=== PATIENT | male | born 1975 | race Caucasian/White ===

== ENCOUNTER 2021-01-15 19:58 | Emergency (ER) | payer OTHER ==
[~2021-01-15] VITALS: Ht 170.2 cm; Wt 86.2 kg
[2021-01-15 20:23] LABS: URINE BILIRUBIN NEGATIVE (Negative); URINE BLOOD 3+ (Negative); URINE CLARITY CLEAR; URINE COLOR YELLOW; URINE GLUCOSE-RANDOM NEGATIVE (Negative); URINE KETONES 2+ (Negative); URINE LEUKOCYTES-REFLEX NEGATIVE (Negative); URINE NITRITE-REFLEX NEGATIVE (Negative); URINE PROTEIN NEGATIVE (Negative); URINE SPECIFIC GRAVITY >= 1.030 (1.005-1.030); URINE UROBILINOGEN 0.2 E.U./dl (0.2-1.0)
[2021-01-15 20:40] LABS: MUCUS 4-6 Moderate strn/LPF (None Seen); URINE RBC >20 Many /HPF (0-2); URINE WBC-REFLEX 0-5 Rare /HPF (0-5)
[2021-01-15 20:41] LABS: CASTS None Seen /LPF (None Seen); CRYSTALS None Seen /LPF (None Seen); SQUAMOUS NONE SEEN /LPF (0-3)
[2021-01-15 20:42] LABS: BACTERIA-REFLEX 1-9 Few /HPF (None Seen)
[2021-01-15 20:51] LABS: ABSOLUTE EOSINOPHILS 0.2 thou/uL (0.0-0.7); ABSOLUTE LYMPHOCYTES 1.3 thou/uL (0.8-5.3); ABSOLUTE MONOCYTES 0.3 thou/uL (0.0-1.2); ABSOLUTE NEUTROPHILS 10.1 thou/uL (1.6-8.1); BASOPHILS 0.4 %; EOSINOPHILS 1.4 %; HEMATOCRIT 45.4 % (42.0-52.0); HEMOGLOBIN 16.1 gm/dL (14.0-18.0); LYMPHOCYTES 10.6 %; MCH 32.8 pg (26.0-34.0); MCHC 35.4 g/dL (28.0-37.0); MCV 92.6 fL (80.0-100.0); MONOCYTES 2.9 %; MPV 7.8 fl. (7.2-11.1); NUCLEATED RBCS 0 /100WBC; PLATELET COUNT* 219 thou/uL (150-400); POLYS 84.7 %; RBC 4.91 mil/uL (4.50-6.00); RDW-CV 12.6 % (10.5-14.5); WBC 11.9 thou/uL (4.0-11.0)
[2021-01-15 21:04] LABS: CALCIUM 9.3 mg/dL (8.5-10.1); POTASSIUM 3.6 mmol/L (3.5-5.1)
[2021-01-15] MEDS ORDERED: HYDROCODON-ACE1 EAC8 PO ×2 (22:28→23:02)
[2021-01-15] MEDS ORDERED: ZOFRAN ODT4 MG PO (22:29)
[2021-01-15 23:05] VITALS: BP 136/87
== END 2021-01-15 23:03 | disposition home or self-care (01) ==
LOC: M.ERS 19:58
PROVIDERS: Emergency Medicine
DX: N20.0 Calculus of kidney (principal)